=== PATIENT | female | born 1975 | race Caucasian/White ===

== ENCOUNTER → 2022-09-25 | Day surgery (SDC) | payer OTHER ==
[~2022-09-25] MED LIST: BUPIVACAINE HCL 0.5% INJ 30 ML VIAL INJ ONE; CEFAZOLIN SODIUM 2 GM ONE; DEXAMETHASONE SOD PHOS INJ 4 MG/ML SDV ONE; EPINEPHRINE 1 MG/ML 30ML VIAL ONE; FENTANYL CITRATE/PF 100MCG/2 ML INJ ONE; GLYCOPYRROLATE INJ 0.2 MG/ML VIAL ONE; LIDOCAINE HCL 2% LOCAL INJ 5 ML SDV VIAL INJ ONE; MEPERIDINE HCL INJ 25 MG/ML VIAL ONE; MIDAZOLAM HCL 2 MG/2 ML VIAL ONE; ONDANSETRON HCL INJ 2MG/ML 2ML 2 MG/ML VIAL ONE; POVIDONE IODINE 0.05% 0.05 % ML PO ONE; PROPOFOL IV EMULSION 10 MG/ML 20 ML VIAL ONE
[2022-09-25 11:35] VITALS: BP 120/71
== END | disposition home or self-care (01) ==
LOC: OR 05:39
PROVIDERS: ATTEND Orthopaedic Surgery
DX: S62.323A Displaced fracture of shaft of third metacarpal bone, left hand, initial encounter for closed fracture (principal); V49.40XA Driver injured in collision with unspecified motor vehicles in traffic accident, initial encounter; W22.11XA Striking against or struck by driver side automobile airbag, initial encounter; Z88.6 Allergy status to analgesic agent
CPT/HCPCS: 26615; 81025; J1100; J2001; J2175; J2250; J2405; J2704; J3010 ×2; 76000